=== PATIENT | male | born 1965 | race Caucasian/White ===

== ENCOUNTER 2019-11-10 19:08 | Inpatient (IN) | payer OTHER ==
[~2019-11-10] VITALS: Ht 167.6 cm; Wt 70.0 kg
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
--- NOTE | 2019-11-10 19:21 | NUR ---
AT BEDSIDE FOR EVAL. IV LINE INITIATED ON LAC 20G.
--- NOTE | 2019-11-10 19:23 | NUR ---
URINE COLLECTED AND SENT TO LAB
--- NOTE | 2019-11-10 19:24 | NUR ---
THAW SHED HEATER TENDER AT BEDSIDE FOR LABS.
[2019-11-10 19:33] LABS: BASOPHILS % (AUTO) 0.6 % (0.0-2.0); EOSINOPHILS % (AUTO) 10.7 % (0.0-6.0); HEMATOCRIT 32 % (39-51); HEMOGLOBIN 11.2 g/dL (13.5-17.5); LYMPHOCYTES # (AUTO) 0.8 /CMM (0.8-4.8); LYMPHOCYTES % (AUTO) 12.8 % (20.0-44.0); MEAN CORPUSCULAR HGB CONC 36 g/dl (31.0-36.0); MEAN CORPUSCULAR VOLUME 87 fL (80-96); MONOCYTES # (AUTO) 0.3 /CMM (0.1-1.30); MONOCYTES % (AUTO) 4.5 % (2.0-12.0); NEUTROPHILS # (AUTO) 4.6 /CMM (1.8-8.9); NEUTROPHILS % (AUTO) 71.4 % (43.0-81.0); PLATELET COUNT (AUTO) 89 /CMM (150-450); RED BLOOD CELL COUNT(AUTO) 3.64 MIL/uL (4.5-6.0); WHITE BLOOD COUNT (AUTO) 6.5 K/uL (4.3-11.0)
[2019-11-10 19:41] LABS: APPEARANCE,URINE Clear (CLEAR); BILIRUBIN,URINE Negative (NEGATIVE); BLOOD, URINE Negative Ery/uL (NEGATIVE); COLOR,URINE Yellow (YELLOW); KETONES,URINE Negative (NEGATIVE); LEUKOCYTE ESTERASE ,URINE Negative (NEGATIVE); NITRITE, URINE Negative (NEGATIVE); PROTEIN,URINE Negative (NEGATIVE); UGLUCOSE Negative (NEGATIVE); UROBILINOGEN,URINE 0.2 EU/dL (0.2)
--- NOTE | 2019-11-10 19:41 | NUR ---
PT BROUGHT TO CT
[2019-11-10 19:43] LABS: CARBON DIOXIDE 28 mmol/L (21-32); CHLORIDE 104 mmol/L (98-107); CREATININE 1.8 mg/dL (0.6-1.3); GLUCOSE 116 mg/dL (74-106); POTASSIUM 3.7 mmol/L (3.5-5.1); SODIUM SERUM 140 mmol/L (136-145); UREA NITROGEN, BLOOD 26 mg/dL (7-18)
[2019-11-10 19:55] LABS: SERUM AMMONIA 32 umol/L (11-32)
[2019-11-10 19:56] LABS: ALANINE AMINOTRANSFERASE 24 U/L (12-78); ALBUMIN 3.9 g/dL (3.4-5.0); ALCOHOL, BLOOD < 3 mg/dL (0-0); ALKALINE PHOSPHATASE 115 U/L (46-116); ASPARTATE AMINOTRANSFERASE 18 U/L (15-37); BILIRUBIN,DIRECT 0.2 mg/dL (0.0-0.2); BILIRUBIN,TOTAL 0.9 mg/dL (0.2-1.0); TOTAL PROTEIN, SERUM 8.2 g/dL (6.4-8.2)
[2019-11-10 19:57] LABS: ACETAMINOPHEN < 2 ug/ml (10-30); SALICYLATE < 0.2 mg/dL (2.8-20.0)
[2019-11-10 20:00] VITALS: BP 132/93
--- NOTE | 2019-11-10 20:19 | NUR ---
PT IN BED, PLACED ON MONITOR, VSS.
[2019-11-10] MEDS ORDERED: IV NS 0.9% 500 ML BAG IV ONE (20:30)
[2019-11-10 20:31] LABS: LYMPHOCYTES % (MANUAL) 15 % (16-48); NEUTROPHILS % (MANUAL) 70 (42-76)
[2019-11-10 20:32] LABS: EOSINOPHILS % (MANUAL) 11 % (0-4); METAMYELOCYTES % 2 % (0-0); MONOCYTES % (MANUAL) 2 % (0-11.0)
--- NOTE | 2019-11-10 20:33 | NUR ---
VERBAL AUTHORIZATION FOR OBSERVATION
--- NOTE | 2019-11-10 20:52 | NUR ---
DR. CHAVIRA ON THE PHONE WITH DR. FRAZIER
--- NOTE | 2019-11-10 21:20 | NUR ---
SPOKE TO PT. PT DOES NOT RECALL HIS NAME, RECALLS HIS AND THAT HE IS 54 YEARS OLD. PT STATED HE LIVES IN [place]. AWARE.
--- NOTE | 2019-11-10 21:25 | NUR ---
BED ASSIGNMENT 309
--- NOTE | 2019-11-10 21:26 | NUR ---
DR. CHAVIRA SPEAKING WITH HOSPITALIST
--- NOTE | 2019-11-10 21:42 | NUR ---
REPORT GIVEN TO TALIB BISHOP FOR MEILSSA
[2019-11-10] MEDS ORDERED: ZOLPIDEM TARTRATE 5 MG TABLET PO PRN (22:00)
[2019-11-10] MEDS ORDERED: ONDANSETRON HCL/PF 4 MG/2 ML VIAL IVP PRN (22:00)
[2019-11-10] MEDS ORDERED: Z GUARD REMEDY 2 OZ OINT TP PRN (22:00)
[2019-11-10] MEDS ORDERED: ACETAMINOPHEN 325 MG TABLET PO PRN (22:00)
[2019-11-10] MEDS ORDERED: MAGNESIUM HYDROXIDE 30 ML UDC PO PRN (22:00)
[2019-11-10] MEDS ORDERED: MAG HYDROX/AL HYDROX/SIMETH 30 ML UDC PO PRN (22:00)
--- NOTE | 2019-11-10 22:00 | NUR ---
PT TRANSFERED PER ACLS PROTOCOL
[2019-11-10 22:20] VITALS: BP 132/93
--- NOTE | 2019-11-10 22:20 | NUR ---
PAINTER MAINTENANCE: ADMISSION 54 y/o Male admitted for AMS. A/O x 1 to self, don't remember his age, stated he is 30 years old. Appears weak, ambulates unsteady in his both legs, unable to unbotton his pants. Skin intact, leads applied for Tele monitor. Fall precaution maintained.
[2019-11-10] MEDS: IV NS 0.9% 1,000 ML IV PRN (22:49)
[2019-11-11 05:19] VITALS: BP 124/88
--- NOTE | 2019-11-11 06:37 | NUR ---
ADVANCED PRACTICE PROVIDER: END OF SHIFT REPORT Patient in bed, awake, adequate oxygenation on room air. Sinus Rhythm in the Tele monitor. Neuro assessment done q4H Remains confused, A/O to self only, poor cognition, speech clear, denies pain. Unable to obtain, allergy to medication due to mental status, patient has no Next of Kin in profile. IVF infusing, afebrile overnight. Plan for PT/OT, Neuro consult. Will endorse to oncoming RN.
[2019-11-11 06:50] LABS: BASOPHILS % (AUTO) 0.6 % (0.0-2.0); HEMATOCRIT 29 % (39-51); HEMOGLOBIN 10.8 g/dL (13.5-17.5); LYMPHOCYTES # (AUTO) 0.9 /CMM (0.8-4.8); MEAN CORPUSCULAR HGB CONC 37 g/dl (31.0-36.0); MEAN CORPUSCULAR VOLUME 90 fL (80-96); MONOCYTES # (AUTO) 0.2 /CMM (0.1-1.30); MONOCYTES % (AUTO) 6.5 % (2.0-12.0); NEUTROPHILS # (AUTO) 1.7 /CMM (1.8-8.9); NEUTROPHILS % (AUTO) 48.9 % (43.0-81.0); PLATELET COUNT (AUTO) 75 /CMM (150-450); RED BLOOD CELL COUNT(AUTO) 3.23 MIL/uL (4.5-6.0); WHITE BLOOD COUNT (AUTO) 3.5 K/uL (4.3-11.0)
[2019-11-11 06:54] LABS: CALCIUM, SERUM 8.7 mg/dL (8.5-10.1); CREATININE 1.4 mg/dL (0.6-1.3); PHOSPHORUS 3.9 mg/dL (2.5-4.9); POTASSIUM 3.7 mmol/L (3.5-5.1)
--- NOTE | 2019-11-11 07:30 | NUR ---
Tele/RN Opening note Received patient in bed AO x 1, able to responds all stimuli. Pt does no c/o pain or any discomfort. Respiratory even and unlabored in room air, skin is warm to kept clean/dry, intact IV site. Keep bed in lock with low position and elevated head of bed for secure airway. Sitter at bed side. Call light within reach, will continue to monitor.
[2019-11-11] MEDS ORDERED: FAMO20TA8 PO (09:05)
[2019-11-11] MEDS ORDERED: LEVE500T20 PO (09:05)
[2019-11-11] MEDS ORDERED: ATEN25TA PO (09:05)
[2019-11-11] MEDS ORDERED: ASPI-1152 PO (09:05)
[2019-11-11] MEDS ORDERED: LISI10TA5 PO (09:05)
[2019-11-11] MEDS ORDERED: MULT-15 PO (09:05)
[2019-11-11] MEDS ORDERED: ATOR40TA PO (09:06)
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
--- NOTE | 2019-11-11 13:52 | NUR ---
MOTOR AND GENERATOR BRUSH CUTTER contacted Missing Persons to inquire if pt has been reported missing. Per Officer Jose, pt has not been reported missing at this time.
[2019-11-11] MEDS: IV NS 0.9% 1,000 ML IV PRN (14:48)
[2019-11-11 15:35] LABS: THYROID STIMULATING HORMONE 2.559 uIU/mL (0.358-3.74)
--- NOTE | 2019-11-11 18:32 | NUR ---
Tele/RN Closing note Patient in bed comfortably, sitter at bed side, pt denies pain or discomfort, skin is warm to touch, clean/dry, intact IV site. Respiratory even and unlabored in room air. Keep bed in lock with low position and elevated HOB for secure airway. Patient does not remember family contact/home phone number, and unable to get home meds information. Call light within reach, will endorse security shift manager.
[2019-11-11 20:00] VITALS: BP 131/85
[2019-11-11 20:15] VITALS: BP 130/77
[2019-11-11 20:30] VITALS: BP 129/77
[2019-11-12] VITALS (10 sets, daily range): BP systolic 128–151; BP diastolic 77–96
[2019-11-12] MEDS: IV NS 0.9% 1,000 ML IV PRN (03:19)
--- NOTE | 2019-11-12 06:59 | NUR ---
end of shift report: pt remains a/o x1-2, able to state comple/full name and , but doesnt recall where he is, what date year and month and why he was in the hospital. pt on tele monitoring sinus rhythm hr 69. iv access remains patent and flushing well, infusing with ns at 75ml/hr, no s/s of iv infiltration noted. accdg to dr mancia notes, no sx intervention as the subdural infarct looks old. pt ambulates to the restroom with assist, continent. vs remains stable, needs attended. safety precautions for fall remains engaged, call light in reach, will endorse to day rn for continuity of care.
--- NOTE | 2019-11-12 07:46 | NUR ---
rn notes patient remains a/o x1 at this time and is confused, on room air saturating well. L AC 20 and R FA 22, patient needs assistance to get out of bed. Bed at the lowest setting, call light within reach, side rails up x2.
[2019-11-12 08:31] LABS: ALBUMIN 3.8 g/dL (3.4-5.0); CALCIUM, SERUM 8.9 mg/dL (8.5-10.1); CREATININE 1.2 mg/dL (0.6-1.3); MAGNESIUM 1.9 mg/dL (1.8-2.4); PHOSPHORUS 3.2 mg/dL (2.5-4.9); POTASSIUM 3.9 mmol/L (3.5-5.1); TOTAL PROTEIN, SERUM 8.2 g/dL (6.4-8.2)
[2019-11-12 08:50] LABS: BASOPHILS # (AUTO) 0.3 /CMM (0.0-0.2); BASOPHILS % (AUTO) 7.8 % (0.0-2.0); EOSINOPHILS % (AUTO) 13.7 % (0.0-6.0); HEMATOCRIT 31 % (39-51); HEMOGLOBIN 10.8 g/dL (13.5-17.5); LYMPHOCYTES # (AUTO) 0.9 /CMM (0.8-4.8); LYMPHOCYTES % (AUTO) 21.7 % (20.0-44.0); MEAN CORPUSCULAR HGB CONC 35 g/dl (31.0-36.0); MEAN CORPUSCULAR VOLUME 85 fL (80-96); MONOCYTES # (AUTO) 0.2 /CMM (0.1-1.30); MONOCYTES % (AUTO) 5.1 % (2.0-12.0); NEUTROPHILS # (AUTO) 2.1 /CMM (1.8-8.9); NEUTROPHILS % (AUTO) 51.7 % (43.0-81.0); PLATELET COUNT (AUTO) 82 /CMM (150-450); RED BLOOD CELL COUNT(AUTO) 3.69 MIL/uL (4.5-6.0)
[2019-11-12 10:17] LABS: CREATININE, URINE 32.9 MG/DL (30.0-125.0); URINE TOTAL PROTEIN 7.1 mg/dL (0-11.9)
[2019-11-12 10:24] LABS: APPEARANCE,URINE CLEAR (CLEAR); BILIRUBIN,URINE NEGATIVE (NEGATIVE); BLOOD, URINE NEGATIVE Ery/uL (NEGATIVE); COLOR,URINE YELLOW (YELLOW); KETONES,URINE NEGATIVE (NEGATIVE); LEUKOCYTE ESTERASE ,URINE NEGATIVE (NEGATIVE); NITRITE, URINE NEGATIVE (NEGATIVE); PROTEIN,URINE NEGATIVE (NEGATIVE); UGLUCOSE NEGATIVE (NEGATIVE); UROBILINOGEN,URINE 0.2 EU/dL (0.2)
[2019-11-12] MEDS: LEVETIRACETAM (250 MG) 250 MG TABLET PO SCH ×2 (10:41→22:13)
[2019-11-12 11:18] LABS: EOSINOPHIL,URINE None Seen
[2019-11-12 11:31] LABS: EOSINOPHILS % (MANUAL) 8 % (0-4); LYMPHOCYTES % (MANUAL) 26 % (16-48); MONOCYTES % (MANUAL) 5 % (0-11.0); NEUTROPHILS % (MANUAL) 61 (42-76)
--- NOTE | 2019-11-12 17:35 | NUR ---
rn closing notes patient remains a/o x2, confused most of the times. Removed both IVS and states that he does not know why he did that. Able to walk around the hallway with good balance and gait. Limit sedatives at this time. Bed at the lowest setting, call light within reach, side rails up x2.
--- NOTE | 2019-11-12 18:03 | NUR ---
rn notes patients family called back. verified with the patients information that it is their father. Yodit Vallejose Angel [phone]. Yoly Angel [phone]. Apparently, patient was a resident of [facility] and was missing a few days ago. Daughter had to call the missing person line and found him to be here, they already talked on the phone.
--- NOTE | 2019-11-12 19:45 | NUR ---
rn notes: pt awaiting placement for board and care, swab for covid (needs negative covid swab for placement). covid swab done by day rn ludwig, pt now r/o covid. pending result. placed on droplet, contact isolation, ppe and faceshield utilized.
--- NOTE | 2019-11-12 20:15 | NUR ---
RN NOTES: APPROACHED BY [employer] OFFICERS ASKING ABOUT THE PT, THEY RECEIVED CALL FROM PT'S DAUGHTER, REPORTING FOR MISSING PERSON. ASSIGNED RN SPOKED WITH [employer] OFFICER, PROVIDED REASON TO WHY PT WAS IN THE HOSPITAL, AND MADE AWARE THAT PT'S FAMILY ALREADY SPOKED WITH THE PT EARLIER THIS AFTERNOON.
--- NOTE | 2019-11-13 06:59 | NUR ---
RN MS CLOSING NOTE: Patient is AOx1. Patient is able to say his name and date of . Patient clark not know where he is, what year or month it is, and why he is in the hospital. Patient removed IV access. Educated patient on the pros and cons of IV. Reinserted IV. New IV is patent, no infiltration. Patient is continent and ambulates to the restroom with assist. DC planning, awaiting placement to board and care.Remains on r/o covid isolation (respiratory, contact, droplet). His vital signs are stable and his needs are attended to. Safety precaution is in place. Bed in the lowest position, side rails x2 are up, bed brakes are on, bed alarm is on, and call light is within reach. Will endorse to the day RN for continuity of care.
--- NOTE | 2019-11-13 07:20 | NUR ---
MS RN NOTE RECEIVED PATIENT SITTING UP IN BED, ALERT AND AWAKE ORIENTED X1. SPEAKS BULGARIAN THEN CHANGES TO KOREAN WHEN SPEAKING AND WHEN GIVING ANSWERS TO QUESTIONS ASKED. AMBULATORY WITH STEADY GAIT. LEFT FA # 22 AND RIGHT FA # 22 INTACT. PATIENT REFUSED TO BE RECONNECTED TO THE IV FLUIDS ORDERED DESPITE OF EXPLANATIONS OF RISKS AND BENEFITS. REALITY ORIENTATION PROVIDED AND REDIRECTION. ASSISTED PATIENT BACK TO BED. BED IN LOWEST POSITION ,LOCKED. BED ALARM ON. CALL LIGHT WITHIN REACH.
[2019-11-13 07:56] LABS: BASOPHILS % (AUTO) 0.8 % (0.0-2.0); EOSINOPHILS % (AUTO) 19.6 % (0.0-6.0); HEMATOCRIT 28 % (39-51); HEMOGLOBIN 10.3 g/dL (13.5-17.5); LYMPHOCYTES # (AUTO) 0.7 /CMM (0.8-4.8); LYMPHOCYTES % (AUTO) 20.4 % (20.0-44.0); MEAN CORPUSCULAR HGB CONC 36 g/dl (31.0-36.0); MEAN CORPUSCULAR VOLUME 88 fL (80-96); MONOCYTES # (AUTO) 0.3 /CMM (0.1-1.30); MONOCYTES % (AUTO) 9.8 % (2.0-12.0); NEUTROPHILS # (AUTO) 1.6 /CMM (1.8-8.9); NEUTROPHILS % (AUTO) 49.4 % (43.0-81.0); PLATELET COUNT (AUTO) 76 /CMM (150-450); RED BLOOD CELL COUNT(AUTO) 3.22 MIL/uL (4.5-6.0); WHITE BLOOD COUNT (AUTO) 3.2 K/uL (4.3-11.0)
[2019-11-13 08:00] VITALS: BP 131/90
[2019-11-13 08:09] LABS: CALCIUM, SERUM 8.8 mg/dL (8.5-10.1); CREATININE 1.3 mg/dL (0.6-1.3); MAGNESIUM 1.9 mg/dL (1.8-2.4); PHOSPHORUS 3.7 mg/dL (2.5-4.9)
[2019-11-13] MEDS: LEVETIRACETAM (250 MG) 250 MG TABLET PO SCH ×2 (08:56→21:46)
[2019-11-13 09:06] LABS: EOSINOPHILS % (MANUAL) 12 % (0-4); LYMPHOCYTES % (MANUAL) 20 % (16-48); MONOCYTES % (MANUAL) 8 % (0-11.0); NEUTROPHILS % (MANUAL) 60 (42-76)
[2019-11-13 09:19] LABS: POTASSIUM 4.1 mmol/L (3.5-5.1)
[2019-11-13 10:09] LABS: PTH, INTACT 23 pg/mL (15-65)
--- NOTE | 2019-11-13 14:00 | NUR ---
MS RN NOTE PATIENT PULLED OUT LEFT FA IV ACCESS.
--- NOTE | 2019-11-13 15:50 | NUR ---
MS RN NOTES PATIENT REFUSED TO BE CONNECTED BACK TO IVF, DRINKS FLUIDS WELL, RELAYED TO DR. DIEGO WITH ORDER TO DC IVF.
[2019-11-13 16:00] VITALS: BP 131/90
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
[2019-11-13] MEDS: LORAZEPAM INJ 2 MG/ML VIAL IV PRN (18:35)
--- NOTE | 2019-11-13 18:35 | NUR ---
MS RN NOTES OBSERVED PATIENT GETTING AGGRESSIVE, PARANOID AND STILL WITH CONFUSION. PATIENT ATTEMPTED TO LEAVE UNIT THROUGH ELEVATOR. PATIENT STATED, I NEED HELP AND WHEN ASKED PATIENT STATES, " I JUST NEED HELP WITH EVERYTHING AND I WANT TO GET OUT OF HERE." "I WANT TO LEAVE." PATIENT ATTEMPTED TO ESCAPE THROUGH THE ELEVATOR, BUT SEVERAL STAFF WAS ABLE TO STOP PATIENT. SECURITY CALLED AND DR. DIEGO MADE AWARE WITH N.O. FOR ATIVAN AND PSYCH CONSULT. WHEN SECURITY ARRIVED AT UNIT, PATIENT WAS ABLE TO BE REDIRECTED BACK TO THE ROOM. WITH STAFF AT SIDE.
--- NOTE | 2019-11-13 18:52 | NUR ---
MS RN NOTE PATIENT SITTING AT SIDE OF BED. NO S/S OF RESPIRATORY DISTRESS. DENIES ANY C/O PAIN NOR DISCOMFORT. RIGHT FA #22 SL INTACT AND PATENT. BED IN LOWEST POSITION ,LOCKED. BED ALARM ON. CALL LIGHT WITHIN REACH. IN NO APPARENT DISTRESS. VISUAL CHECK DONE.
[2019-11-13 20:00] VITALS: BP 123/80
[2019-11-13 20:05] VITALS: BP 123/80
--- NOTE | 2019-11-13 20:10 | NUR ---
RN NOTES: PT ON R/O COVID19 ISOLATION, AIRBORNE/DROPLET/CONTACT. PPE AND FACE SHIELD UTILIZED
[2019-11-13 20:15] VITALS: BP 130/91
[2019-11-13 20:30] VITALS: BP 121/91
--- NOTE | 2019-11-13 21:42 | NUR ---
rn notes: dr gutierrez /psych md came to the unit, made aware of the psych consult for the pt, ordered this afternoon at 1700, due to pt's behavior- aggressive, confused and paranoid, and per daughter pt's on risperdal unknown dose. all this information relayed to , also provided with pt's facesheet. per md he will come and see the pt tomorrow morning as he has 2consults today for other pt. furniture sander made aware.
[2019-11-14 02:55] VITALS: BP 133/99
[2019-11-14] MEDS: LORAZEPAM INJ 2 MG/ML VIAL IV PRN ×2 (03:08→16:49)
--- NOTE | 2019-11-14 03:09 | NUR ---
prn ativan: p[t anxious, agitated, kept getting out of the bed to ambulate outside, pt on isolation r/o covid, pt pulled out iv access, confused, restless, prn ativan 1mg ivp administered to pt at this time. will continue to monitor and reassess pt.
--- NOTE | 2019-11-14 06:45 | NUR ---
END OF SHIFT RPEORT: RECEIVED REPORT FROM SARAH BISHOP AT 1915 LAST NIGHT. PT REMAINS ON ISOLATION, PENDING COVID RESULT, PPE UTILIZED THROUGHOUT THE SHIFT, INCLUDING FACE SHIELD, N95. PT REMAINS A/O X1, ON AND OFF COOPERATIVE, WITH PERIODS OF RESTLESSNESS, AGITATION, NEEDING PRN ATIVAN ADMINISTRATION AT 0211AM. PT ALSO HAD EPISODE OF PULLING OUT IV, AND FREQUENTLY GETTING OUT OF BED. PSYCH MD DR VELA AWARE OF CONSULT, WILL COME BY IN AM. PT HAS GOOD ORAL INTAKE PROVIDED WITH SNACKS. NEW IV ACCESS INSERTED ON RIGHT AC G 20, PATENT AND FLUSHING WELL. AWAITING PLACEMENT, POSSIBLE SOBRIETY CONNECTION SOBER LIVING. VS REMAINS STABLE, NEEDS ATTENDED. BLE KEPT OFFLOADED ON PILLOWS. SAFETY PRECAUTIONS FOR FALL REMAINS ENGAGED, CALL LIGHT IN REACH, WILL ENDORSE TO DAY DARIO SMITH FOR CONTINUITY OF CARE.
[2019-11-14 06:52] LABS: CALCIUM, SERUM 8.5 mg/dL (8.5-10.1); CREATININE 1.4 mg/dL (0.6-1.3); MAGNESIUM 1.8 mg/dL (1.8-2.4); PHOSPHORUS 3.8 mg/dL (2.5-4.9); POTASSIUM 3.6 mmol/L (3.5-5.1)
[2019-11-14 07:09] LABS: BASOPHILS % (AUTO) 0.5 % (0.0-2.0); EOSINOPHILS % (AUTO) 19.8 % (0.0-6.0); HEMATOCRIT 25 % (39-51); HEMOGLOBIN 9.5 g/dL (13.5-17.5); LYMPHOCYTES # (AUTO) 0.8 /CMM (0.8-4.8); MEAN CORPUSCULAR HGB CONC 38 g/dl (31.0-36.0); MEAN CORPUSCULAR VOLUME 89 fL (80-96); MONOCYTES # (AUTO) 0.2 /CMM (0.1-1.30); MONOCYTES % (AUTO) 7.9 % (2.0-12.0); NEUTROPHILS # (AUTO) 1.4 /CMM (1.8-8.9); NEUTROPHILS % (AUTO) 44.8 % (43.0-81.0); PLATELET COUNT (AUTO) 74 /CMM (150-450); RED BLOOD CELL COUNT(AUTO) 2.84 MIL/uL (4.5-6.0); WHITE BLOOD COUNT (AUTO) 3.1 K/uL (4.3-11.0)
[2019-11-14 08:00] VITALS: BP 126/88
[2019-11-14] MEDS: LEVETIRACETAM (250 MG) 250 MG TABLET PO SCH ×2 (08:33→20:42)
[2019-11-14] MEDS: HYDROCODONE/APAP 5/325MG 1 EACH TABLET PO PRN ×2 (08:34→18:18)
--- NOTE | 2019-11-14 12:30 | NUR ---
MS RN NOTE PATIENT PULLED OUT IV ACCESS TO RT AC
--- NOTE | 2019-11-14 13:24 | NUR ---
MS RN NOTES Patient is A/O x 1. Understands and follows commands but he is disoriented to place and time. Patient paces around, pulled off R AC IV. Vitals are WNL. Gave scheduled medications no signs of distress and no shortness of breath. C/O pain on the right upper abdomen and pain medication was administered. Bed alarm is on, bed settings is low and side rails are up for safety. Will continue to monitor.
[2019-11-14 16:00] VITALS: BP 133/82
[2019-11-14 16:09] LABS: *SPE A/G RATIO 0.9 (0.7-1.7); *SPE ALBUMIN 3.5 g/dL (2.9-4.4); *SPE ALPHA-1-GLOBULIN 0.3 g/dL (0.0-0.4); *SPE ALPHA-2-GLOBULIN 0.7 g/dL (0.4-1.0); *SPE BETA GLOBULIN 0.9 g/dL (0.7-1.3); *SPE GLOBULIN, TOTAL 3.8 g/dL (2.2-3.9); *SPE M-SPIKE Not Observed g/dL (Not Observed)
--- NOTE | 2019-11-14 19:35 | NUR ---
MS RN NOTES PATIENT SEEN AND EXAMINED BY ZHANG DANIELS MD REGARDING PATIENT'S BEHAVIOR AND HX.
--- NOTE | 2019-11-14 19:57 | NUR ---
RN Closing Notes Patient is A/Ox1. Able to ambulate and have proper gait. Paces around the hallway frequently. Vitals are within normal limit. No signs of shortness of breath and no signs of distress. Scheduled medications were given. C/O of left upper abdominal pain and pain medication was given at 1819. IV on Right wrist #22 G and Left wrist #24 G intact and patent saline lock. Bed is in low settings, side rails up for safety and call light is within reach. Lab work will be done in the morning. Will endorse to the next shift.
[2019-11-14] MEDS: DIVALPROEX SODIUM 250 MG TABLET.DR PO SCH (20:42)
[2019-11-14] MEDS: QUETIAPINE FUMARATE 25 MG TABLET PO SCH (20:42)
--- NOTE | 2019-11-14 22:57 | NUR ---
MS/TELE/RN PATIENT APPEAR SLEEPING AT THIS TIME, APPEAR COMFORTABLE, NO SIGNS OF DISTRESS NOTED, BREATHING EVEN AND UNLABORED, CALL LIGHT IN REACH, WILL CONTINUE TO MONITOR.
--- NOTE | 2019-11-15 06:28 | NUR ---
MS/TELE/RN PATIENT IS ALREADY AWAKE AT THIS TIME, GOOD SLEEP THE WHOLE SHIFT WAS NOTED, NO CHANGE IN CONDITION AT THIS TIME, ALL NEEDS ATTENDED, WILL CONTINUE TO MONITOR.
--- NOTE | 2019-11-15 08:00 | NUR ---
MS RN OPENING NOTES Received Patient awake and ambulating in room. A/O x 2, Turkmen speaking. VS stable with no acute distress. Breathing even and unlabored on room air with no respiratory distress. Denies pain. No signs and symptoms of pain. 22g PIV on right wrist clean, intact, patent and flushing well. 24g PIV on left wrist clean, intact, patent and flushing well. Safety precautions in place. Bed locked and set to lowest position with side rails x 2 up. All needs rendered at this time. Call light within reach. Will continue to monitor.
[2019-11-15] MEDS: LEVETIRACETAM (250 MG) 250 MG TABLET PO SCH (08:31)
[2019-11-15] MEDS: QUETIAPINE FUMARATE 25 MG TABLET PO SCH (08:31)
[2019-11-15] MEDS: DIVALPROEX SODIUM 250 MG TABLET.DR PO SCH (08:31)
[2019-11-15 08:32] VITALS: BP 121/79
[2019-11-15 08:44] LABS: BASOPHILS % (AUTO) 0.6 % (0.0-2.0); EOSINOPHILS % (AUTO) 21.8 % (0.0-6.0); HEMATOCRIT 32 % (39-51); HEMOGLOBIN 11.1 g/dL (13.5-17.5); MEAN CORPUSCULAR HGB CONC 35 g/dl (31.0-36.0); MEAN CORPUSCULAR VOLUME 87 fL (80-96); MONOCYTES # (AUTO) 0.3 /CMM (0.1-1.30); MONOCYTES % (AUTO) 6.7 % (2.0-12.0); NEUTROPHILS # (AUTO) 1.7 /CMM (1.8-8.9); NEUTROPHILS % (AUTO) 44.9 % (43.0-81.0); PLATELET COUNT (AUTO) 102 /CMM (150-450); RED BLOOD CELL COUNT(AUTO) 3.65 MIL/uL (4.5-6.0); WHITE BLOOD COUNT (AUTO) 3.8 K/uL (4.3-11.0)
[2019-11-15 08:47] LABS: CALCIUM, SERUM 9.6 mg/dL (8.5-10.1); CREATININE 1.3 mg/dL (0.6-1.3); PHOSPHORUS 3.8 mg/dL (2.5-4.9); POTASSIUM 3.6 mmol/L (3.5-5.1)
[2019-11-15] MEDS ORDERED: ATORVASTATIN 40 MG TABLET PO SCH (09:00)
[2019-11-15] MEDS ORDERED: ASPIRIN EC 81 MG TABLET.DR PO SCH (09:00)
[2019-11-15] MEDS ORDERED: FAMOTIDINE (20 MG) 20 MG TABLET PO SCH (09:00)
[2019-11-15] MEDS ORDERED: ATENOLOL 25 MG TABLET PO SCH (09:00)
[2019-11-15] MEDS ORDERED: LISINOPRIL (10MG) 10 MG TABLET PO SCH (09:00)
[2019-11-15] MEDS ORDERED: MULTIVITAMINS,THERAGRAN 1 UDTAB TABLET PO SCH (09:00)
[2019-11-15 09:50] LABS: EOSINOPHILS % (MANUAL) 20 % (0-4); LYMPHOCYTES % (MANUAL) 26 % (16-48); MONOCYTES % (MANUAL) 6 % (0-11.0); NEUTROPHILS % (MANUAL) 48 (42-76)
[2019-11-15] MEDS ORDERED: THIA100T88 PO (12:43)
--- NOTE | 2019-11-15 17:00 | NUR ---
MS SUPERVISOR SEWER MAINTENANCE NOTES Patient discharged for home at this time. A/O x 2, Irish speaking. VS stable with no acute distress. Breathing even and unlabored on room air with no respiratory distress. Denies pain. No signs and symptoms of pain. Skin assessment pictures taken and placed in chart. Removed intact PIVs. Medication reconciliation and discharge orders reviewed and explained to Patient. Patient verbalized understanding. All belongings with Patient. Patient will follow up with PCP in 1 week. Escorted Patient to the lobby for safety. Patient picked up by Chris.
== END 2019-11-15 16:10 | disposition home health service (06) | DRG 469 ==
LOC: ER 19:12 → TELE 21:43 → MED 11-12 09:43
PROVIDERS: ADMIT Registered Nurse; ATTEND Nurse Practitioner Acute Care
DX: N17.0 Acute kidney failure with tubular necrosis (principal); G93.41 Metabolic encephalopathy; F10.27 Alcohol dependence with alcohol-induced persisting dementia; F10.26 Alcohol dependence with alcohol-induced persisting amnestic disorder; K70.30 Alcoholic cirrhosis of liver without ascites; X58.XXXA Exposure to other specified factors, initial encounter; Y92.9 Unspecified place or not applicable; Z59.0 Homelessness; I10 Essential (primary) hypertension; D64.9 Anemia, unspecified; D72.819 Decreased white blood cell count, unspecified; F29 Unspecified psychosis not due to a substance or known physiological condition; F39 Unspecified mood [affective] disorder; E86.0 Dehydration; E87.6 Hypokalemia; Y90.0 Blood alcohol level of less than 20 mg/100 ml; I69.198 Other sequelae of nontraumatic intracerebral hemorrhage; R40.2362 Coma scale, best motor response, obeys commands, at arrival to emergency department; R40.2142 Coma scale, eyes open, spontaneous, at arrival to emergency department; R40.2242 Coma scale, best verbal response, confused conversation, at arrival to emergency department
CPT/HCPCS: 36415; 70450-TC; 71045-TC; 80048-TC; 80053-TC; 80061-TC; 80076-TC; 80305; 81000-TC; 82140-TC; 82550-TC; 82570-TC; 82728-TC; 82962-TC; 83540-TC; 83735-TC; 83970; 84100-TC; 84155; 84155-TC; 84165; 84300-TC; 84443-TC; 84484-TC; 85025-TC; 87081-TC; 87086-TC; 93307-TC; 93880-TC; 97116-TC; 97530-TC; G0378; G0480; J2060; J7030; U0003-CS